=== PATIENT | female | born 1975 | race Caucasian/White ===

== ENCOUNTER 2021-05-19 11:51 | Observation (INO) ==
[2021-05-19] MEDS ORDERED: Perflutren Lipid Microsphere 1.3 ML in 0.9 % Sodium Chloride 8.7 ML IVP PRN (16:03)
[2021-05-19] MEDS ORDERED: methocarbamoL 500 MG TABLET PO PRN (16:44)
[2021-05-19] MEDS ORDERED: methocarbamoL 500 MG TABLET PO ONE (16:44)
[2021-05-19] MEDS ORDERED: Naloxone 0.4 MG/ML INJ IVP PRN (16:48)
[2021-05-19] MEDS ORDERED: Acetaminophen 325 MG TABLET PO PRN (18:10)
[2021-05-19] MEDS: Primidone 50 MG TABLET PO SCH (20:48)
[2021-05-20] MEDS: OLANZapine 5 MG TAB.RAPDIS PO SCH (08:11)
[2021-05-20] MEDS: lamoTRIgine 100 MG TABLET PO SCH (08:11)
[2021-05-20] MEDS: Cyanocobalamin (B-12) 1,000 MCG TABLET PO SCH (08:11)
[2021-05-20] MEDS: Cholecalciferol (D-3) 1,000 UNIT (25MCG) TABLET PO SCH (08:11)
[2021-05-20 09:06] LABS: Mucus,Urine Many per lpf (None-Few); RBC,Urine TNTC per hpf (0-3); Squamous Epithelial Cell,Urine Moderate per hpf (None-Few)
[2021-05-20 09:35] LABS: Basophils # 0.1 K/mcL (0.0-0.2); Basophils % 0.6 %; Eosinophils # 0.1 K/mcL (0.0-0.6); Eosinophils % 0.5 %; Hematocrit 39.4 % (35.3-44.9); Hemoglobin 13.1 g/dL (11.5-15.4); Immature Granulocytes % 0.5 % (0-4); Lymphocytes # 3.5 K/mcL (0.6-4.6); Lymphocytes % 24.4 %; Mean Corpuscular HGB Conc 33.2 g/dL (31.6-35.5); Mean Corpuscular Hemoglobin 32.5 pg (28.0-33.3); Mean Corpuscular Volume 97.8 fL (83.0-100.0); Mean Platelet Volume 9.7 fL (9.4-12.4); Monocytes # 0.9 K/mcL (0.0-1.3); Monocytes % 6.3 %; Neutrophils # 9.6 K/mcL (1.6-8.9); Platelet Count 283 K/mcL (140-400); Red Blood Count 4.03 M/mcL (3.82-4.97); Segmented Neutrophils % 67.7 %; White Blood Count 14.2 K/mcL (4.3-11.1)
[2021-05-20 09:49] LABS: Adenovirus Not Detected (Not Detect); Bordetella Pertussis Not Detected (Not Detect); Chlamydophila pneumoniae Not Detected (Not Detect); Coronavirus 229E Not Detected (Not Detect); Coronavirus HKU1 Not Detected (Not Detect); Coronavirus NL63 Not Detected (Not Detect); Coronavirus OC43 Not Detected (Not Detect); Human Metapneumovirus Not Detected (Not Detect); Human Rhinovirus/Enterovirus Not Detected (Not Detect); Influenza A Subtype 2009 H1 Not Detected (Not Detect); Influenza B Not Detected (Not Detect); Mycoplasma pneumoniae Not Detected (Not Detect); Parainfluenza Virus 1 Not Detected (Not Detect); Parainfluenza Virus 2 Not Detected (Not Detect); Parainfluenza Virus 3 Not Detected (Not Detect); Parainfluenza Virus 4 Not Detected (Not Detect); Respiratory Syncytial Virus Not Detected (Not Detect); SARS-CoV-2 Not Detected (Not Detect)
[2021-05-20 11:12] LABS: Bilirubin,Urine Negative (Negative); Blood,Urine Large (Negative); Clarity,Urine Clear (Clear); Color,Urine Yellow (Yellow); Glucose,Urine (UA) Normal (Normal); Ketones,Urine Negative (Negative); Leukocyte Esterase,Urine Negative (Negative); Nitrite,Urine Negative (Negative); Protein,Urine 50 mg/dL (Neg-Trace); Specific Gravity,Urine > 1.030 (1.010-1.025); Urobilinogen,Urine Normal (Normal)
[2021-05-20] MEDS: Primidone 50 MG TABLET PO SCH (19:59)
[2021-05-21] MEDS: lamoTRIgine 100 MG TABLET PO SCH (10:12)
[2021-05-21] MEDS: Cyanocobalamin (B-12) 1,000 MCG TABLET PO SCH (10:12)
[2021-05-21] MEDS: OLANZapine 5 MG TAB.RAPDIS PO SCH (10:12)
[2021-05-21] MEDS: Cholecalciferol (D-3) 1,000 UNIT (25MCG) TABLET PO SCH (10:12)
[2021-05-21 14:32] VITALS: BP 104/68; PULSE 70; TEMP 98.4; O2SAT 97
== END 2021-05-21 15:14 | disposition home or self-care (01) ==
LOC: 3BNU → SUATTDRO 13:56 → UNDODISOB 19:39
PROVIDERS: ADMIT Internal Medicine; ATTEND Registered Nurse